=== PATIENT | female | born 1985 | race Caucasian/White ===

== ENCOUNTER 2018-07-04 00:20 | Observation (INO) | payer BC, OTHER ==
[2018-07-04] MEDS ORDERED: LIDOCAINE VISCOUS 2% SOLN 15 ML UDC ONE (01:23)
[2018-07-04] MEDS ORDERED: MAGNE/ALUM HYDROXD 30 ML UCUP ONE (01:23)
[2018-07-04 01:26] LABS: Absolute Lymphocytes (CBC) 2.4 K/uL (0.7-4.9); Absolute Monocytes 0.5 K/uL (0.1-1.3); Absolute Neutrophil 4.6 K/uL (1.8-8.0); Basophils % 1.1 % (0-1.3); Hematocrit 47.6 % (36.0-45.0); Lymphocytes % 30.8 % (15.3-44.8); Monocytes % 6.6 % (3.3-12.3); RBC Red Blood Cell Count 5.29 M/uL (3.86-4.86)
[2018-07-04 01:27] LABS: Protime INR 0.94
[2018-07-04 02:29] LABS: ALT/SGPT 53 U/L (12-78); AST/SGOT 95 U/L (15-37); Albumin 3.8 g/dL (3.4-5.0); Alkaline Phosphatase 80 U/L (45-117); BUN Blood Urea Nitrogen 11 mg/dL (7-18); Bicarbonate 24 mmol/L (21-32); Bilirubin Direct 0.2 mg/dL (0-0.2); Bilirubin Total 0.4 mg/dL (0.2-1.0); Glucose Level 89 mg/dL (74-106); Lipase 4692 U/L (73-393); Magnesium 2.1 mg/dL (1.8-2.4); NT PRO-BNP 24 pg/mL (<125); Potassium 3.7 mmol/L (3.5-5.1); Protein, Total 7.5 g/dL (6.4-8.2); Sodium Level 142 mmol/L (136-145); Troponin (Emerg Dept Use Only) < 0.02 ng/mL (0.0-0.045)
[2018-07-04] MEDS ORDERED: ACETAMINOPHEN 500 MG TAB PO PRN (03:26)
[2018-07-04] MEDS ORDERED: ONDANSETRON 4 MG/2 ML VIAL IV PRN (03:26)
[2018-07-04] MEDS ORDERED: MORPHINE 4 MG/ML SYR IV PRN (03:26)
--- NOTE | 2018-07-04 03:48 | ER ---
Nurse's Notes [facility] Name: Willa Mcclellan Age: 33 yrs Sex: Female : 1985 Arrival Date: 07/04/2018 Time: 00:26 Bed 19 Private MD: Diagnosis: Acute pancreatitis Presentation: 07/04 00:48 Presenting complaint: Patient states: Pt reports at 1900 she started having epigastric ea pain that traveled to her chest and moved straight to her back with n/v/d. Pt reports the pain comes and goes. States she had a few drinks tonight. Transition of care: patient was not received from another setting of care. Onset of symptoms was July 04, 2018. Risk Assessment: Do you want to hurt yourself or someone else? Patient reports no desire to harm self or others. Initial Sepsis Screen: Does the patient meet any 2 criteria? No. Patient's initial sepsis screen is negative. Does the patient have a suspected source of infection? No. Patient's initial sepsis screen is negative. Care prior to arrival: None. 00:48 Method Of Arrival: Wheelchair ea 00:48 Acuity: DAVE 3 ea Triage Assessment: 00:48 General: Appears uncomfortable, Behavior is crying. Pain: Complains of pain in anterior ea aspect of right upper chest, anterior aspect of left upper chest, right breast, left breast and epigastric area Pain radiates to back Pain currently is 9 out of 10 on a pain scale. Quality of pain is described as shooting, Pain began 1900 Is intermittent, Noted to be crying, grimacing. EENT: No signs and/or symptoms were reported regarding the EENT system. Neuro: Level of Consciousness is awake, alert, obeys commands, Oriented to person, place, time, situation. Cardiovascular: Patient's skin is warm and dry. Respiratory: Reports shortness of breath with pain Onset: The symptoms/episode began/occurred today, the patient reports symptoms have resolved. GI: Bowel sounds present X 4 quads. Abd is soft and non tender X 4 quads. GI: Reports diarrhea, nausea, vomiting. Derm: Skin is pink, warm \T\ dry. 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 - Social history:: Smoking status: Patient/guardian denies using tobacco. - Ebola Screening: : No symptoms or risks identified at this time. Screenin:53 Abuse screen: Denies threats or abuse. Nutritional screening: No deficits noted. ea Tuberculosis screening: No symptoms or risk factors identified. Fall Risk None identified. Assessment: 01:25 Reassessment: See triage assessment. Cardiovascular: Rhythm is sinus rhythm. ea Respiratory: Airway is patent Respiratory effort is even, unlabored, Respiratory pattern is regular, symmetrical, Breath sounds are clear bilaterally. 02:32 Reassessment: Patient and/or family updated on plan of care and expected duration. Pain ea level reassessed. Patient is alert, oriented x 3, equal unlabored respirations, skin warm/dry/pink. 02:47 Reassessment: Patient and/or family updated on plan of care and expected duration. Pain ea level reassessed. Patient is alert, oriented x 3, equal unlabored respirations, skin warm/dry/pink. Pt taken to CT. 03:14 Reassessment: Patient and/or family updated on plan of care and expected duration. Pain ea level reassessed. Patient is alert, oriented x 3, equal unlabored respirations, skin warm/dry/pink. Pt returned from CT. 04:51 Reassessment: Patient and/or family updated on plan of care and expected duration. Pain ea level reassessed. Patient is alert, oriented x 3, equal unlabored respirations, skin warm/dry/pink. Report called to Christina VAZQUEZ on second floor. Pt admitted to second floor via wheelchair per tech. Pt tolerating well. Vital Signs: 00:48 BP 119 / 82; Pulse 73; Resp 14; Temp 97.6; Pulse Ox 99% on R/A; Weight 83.91 kg; Height ea 5 ft. 2 in. (157.48 cm); Pain 9/10; 01:00 BP 120 / 79; Pulse 78; Resp 18; Pulse Ox 100% on R/A; ea 02:30 BP 100 / 66; Pulse 79; Resp 18; Pulse Ox 98% on R/A; ea 03:11 BP 138 / 107; Pulse 94; Resp 20; Pulse Ox 99% ; ea 04:36 BP 105 / 69; Pulse 65; Resp 19; Pulse Ox 99% on R/A; ea 00:48 Body Mass Index 33.84 (83.91 kg, 157.48 cm) ea ED Course: 00:26 Patient arrived in ED. ds1 00:43 Hugo Sen PA is PHCP. jr8 00:44 Joseph Ling MD is Attending Physician. jr8 00:48 Beverly Hill RN is Primary Nurse. ea 00:51 Triage completed. ea 00:52 Arm band placed on right wrist. Patient placed in an exam room, on a stretcher, on ea personnel monitor, on pulse oximetry. 00:52 Patient has correct armband on for positive identification. Placed in gown. Bed in low ea position. Call light in reach. 01:00 Inserted saline lock: 22 gauge in right antecubital area, using aseptic technique. ea Blood collected. 01:19 X-ray completed. Portable x-ray completed in exam room. Patient tolerated procedure sg4 well. 02:[address] via wheelchair. kw1 03:06 CT completed. Patient tolerated procedure well. Patient moved back from CT. kw1 03:46 Andre Rocha MD is Hospitalizing Provider. ps1 03:46 Hospitalizing Provider role handed off by Andre Rocha MD ps1 03:46 Joseph Ling MD is Hospitalizing Provider. ps1 03:46 Hospitalizing Provider role handed off by Joseph Ling MD ps1 03:46 Andre Rocha MD is Hospitalizing Provider. ps1 04:10 No provider procedures requiring assistance completed. Patient admitted, IV remains in ea place. Administered Medications: 01:19 Drug: GI Cocktail without - (Maalox Suspension 30 ml, Lidocaine Liquid 2 % 15 ea ml) Route: PO; 02:00 Follow up: Response: No adverse reaction ea Outcome: 03:47 Decision to Hospitalize by Provider. ps1 04:11 Instructed on the need for admit. ea 04:41 Admitted to Med/surg accompanied by tech, room 205, with chart, Report called to Christina denney RN 04:41 Condition: stable 04:55 Patient left the ED. jd3 Signatures: Becca Chirinos ds1 Hugo Sen PA PA jr8 Beverly Hill, RN RN олег Cm, GEORGE Ko RN jd3 Joseph Ling MD MD ps1 Wilhelm, Kimberly kw1 Garcia, Susana 4
--- NOTE | 2018-07-04 03:48 | EDPHYS ---
Physician Documentation [facility] Name: Willa Mcclellan Age: 33 yrs Sex: Female : 1985 Arrival Date: 07/04/2018 Time: 00:26 Bed 19 Private MD: ED Physician Joseph Ling HPI: 07/04 02:37 This 33 yrs old Female presents to ER via Wheelchair with complaints of Upper jr8 abd pain, Shortness Of Breath. 02:37 Onset: The symptoms/episode began/occurred acutely, today. Associated signs and jr8 symptoms: The patient has no apparent associated signs or symptoms. Modifying factors: The patient symptoms are alleviated by nothing, the patient symptoms are aggravated by nothing. The patient has not experienced similar symptoms in the past. The patient has not recently seen a physician. Patient stated that she had epigastric pain that radiates to chest. Feels tightness around back and chest. Denies n/v/d, or fevers . 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 - Social history:: Smoking status: Patient/guardian denies using tobacco. - Ebola Screening: : No symptoms or risks identified at this time. ROS: 02:37 Eyes: Negative for injury, pain, redness, and discharge, ENT: Negative for injury, jr8 pain, and discharge, Neck: Negative for injury, pain, and swelling, Respiratory: Negative for shortness of breath, cough, wheezing, and pleuritic chest pain, Back: Negative for injury and pain, MS/Extremity: Negative for injury and deformity, Skin: Negative for injury, rash, and discoloration, Neuro: Negative for headache, weakness, numbness, tingling, and seizure. 02:37 Cardiovascular: Positive for chest pain, Negative for edema, orthopnea, palpitations, paroxysmal nocturnal dyspnea. 02:37 Abdomen/GI: Positive for abdominal pain, Negative for nausea, vomiting, and diarrhea, abdominal distension, anorexia, dysphagia, hematemesis, black/tarry stool, rectal pain, rectal bleeding, bowel incontinence, flatulence. Exam: 02:37 Eyes: Pupils equal round and reactive to light, extra-ocular motions intact. Lids and jr8 lashes normal. Conjunctiva and sclera are non-icteric and not injected. Cornea within normal limits. Periorbital areas with no swelling, redness, or edema. ENT: Nares patent. No nasal discharge, no septal abnormalities noted. Tympanic membranes are normal and external auditory canals are clear. Oropharynx with no redness, swelling, or masses, exudates, or evidence of obstruction, uvula midline. Mucous membranes moist. Neck: Trachea midline, no thyromegaly or masses palpated, and no cervical lymphadenopathy. Supple, full range of motion without nuchal rigidity, or vertebral point tenderness. No Meningismus. Cardiovascular: Regular rate and rhythm with a normal S1 and S2. No gallops, murmurs, or rubs. Normal PMI, no JVD. No pulse deficits. Respiratory: Lungs have equal breath sounds bilaterally, clear to auscultation and percussion. No rales, rhonchi or wheezes noted. No increased work of breathing, no retractions or nasal flaring. Back: No spinal tenderness. No costovertebral tenderness. Full range of motion. Skin: Warm, dry with normal turgor. Normal color with no rashes, no lesions, and no evidence of cellulitis. MS/ Extremity: Pulses equal, no cyanosis. Neurovascular intact. Full, normal range of motion. Neuro: Awake and alert, GCS 15, oriented to person, place, time, and situation. Cranial nerves II-XII grossly intact. Motor strength 5/5 in all extremities. Sensory grossly intact. Cerebellar exam normal. Normal gait. 02:37 Abdomen/GI: Inspection: abdomen appears normal, Bowel sounds: active, all quadrants, Palpation: soft, in all quadrants, moderate abdominal tenderness, in the epigastric area, mass, is not appreciated, rebound tenderness, is not appreciated, voluntary guarding, is not appreciated, involuntary guarding, is not appreciated, no appreciated organomegaly, Indicators: McBurney's point is not tender, George's sign is negative, Rovsing's sign is negative, Liver: tenderness, is not appreciated. Vital Signs: 00:48 BP 119 / 82; Pulse 73; Resp 14; Temp 97.6; Pulse Ox 99% on R/A; Weight 83.91 kg; Height ea 5 ft. 2 in. (157.48 cm); Pain 9/10; 01:00 BP 120 / 79; Pulse 78; Resp 18; Pulse Ox 100% on R/A; ea 02:30 BP 100 / 66; Pulse 79; Resp 18; Pulse Ox 98% on R/A; ea 03:11 BP 138 / 107; Pulse 94; Resp 20; Pulse Ox 99% ; ea 04:36 BP 105 / 69; Pulse 65; Resp 19; Pulse Ox 99% on R/A; ea 00:48 Body Mass Index 33.84 (83.91 kg, 157.48 cm) ea MDM: 00:46 Patient medically screened. 8 07/05 01:28 Data reviewed: vital signs, nurses notes, lab test result(s), radiologic studies, CT [facility] scan. Data interpreted: Pulse oximetry: on room air is 99 %. Interpretation: normal. Counseling: I had a detailed discussion with the patient and/or guardian regarding: the historical points, exam findings, and any diagnostic results supporting the discharge/admit diagnosis, lab results, radiology results, the need for further work-up and treatment in the hospital. 07/04 01:05 Order name: Basic Metabolic Panel [facility] 07/04 01:05 Order name: CBC with Diff [facility] 07/04 01:05 Order name: LFT's [facility] 07/04 01:05 Order name: Magnesium [facility] 07/04 01:05 Order name: NT PRO-BNP [facility] 07/04 01:05 Order name: PT-INR [facility] 07/04 01:05 Order name: Troponin (emerg Dept Use Only) [facility] 07/04 01:05 Order name: Lipase [facility] 07/04 01:27 Order name: CBC with Automated Diff; Complete Time: 01:31 EDMS 07/04 01:28 Order name: Protime (+INR); Complete Time: 01:31 EDMS 07/04 02:30 Order name: Basic Metabolic Panel; Complete Time: 02:34 EDMS 07/04 02:30 Order name: Liver (Hepatic) Function; Complete Time: 02:34 EDMS 07/04 02:30 Order name: Troponin (Emerg Dept Use Only); Complete Time: 02:34 EDMS 07/04 02:30 Order name: NT PRO-BNP; Complete Time: 02:34 EDMS 07/04 01:05 Order name: XRAY Chest (1 view) 07/04 01:05 Order name: EKG; Complete Time: :07/04 01:05 Order name: Cardiac monitoring; Complete Time: :07/04 01:05 Order name: EKG - Nurse/Tech; Complete Time: :07/04 01:05 Order name: IV Saline Lock; Complete Time: 07/04 01:05 Order name: Labs collected and sent; Complete Time: 07/04 01:05 Order name: O2 Per Protocol; Complete Time: 07/04 01:05 Order name: O2 Sat Monitoring; Complete Time: 07/04 02:30 Order name: Magnesium; Complete Time: 02:34 EDMS 07/04 02:30 Order name: Lipase; Complete Time: 02:34 EDMS 07/04 02:34 Order name: CT Abd/Pelvis - W/Contrast Administered Medications: 07/04 01:19 Drug: GI Cocktail without - (Maalox Suspension 30 ml, Lidocaine Liquid 2 % 15 ea ml) Route: PO; 02:00 Follow up: Response: No adverse reaction ea Disposition: 07:00 Co-signature as Attending Physician, Joseph Ling MD Available for consultation at ps1 all times . Disposition: 07/04/18 03:47 Hospitalization ordered by Andre Rocha for Inpatient Admission. Preliminary diagnosis is Acute pancreatitis. - Bed requested for Telemetry/MedSurg (Inpatient). - Status is Inpatient Admission. lizzy - Condition is Stable. - Problem is new. - Symptoms are unchanged. UTI on Admission? No Signatures: Dispatcher [employer] EDNM Gypsy De Oliveira RN RN mw Roszak, Josh, PA PA jr8 Beverly Hill RN RN ea Davies, Jonathon, RN RN jd3 Singer, Phillip, MD MD ps1 Corrections: (The following items were deleted from the chart) 03:54 03:47 Hospitalization Ordered by Andre Rocha MD for Inpatient Admission. Preliminary mw diagnosis is Acute pancreatitis. Bed requested for Telemetry/MedSurg (Inpatient). Status is Inpatient Admission. Condition is Stable. Problem is new. Symptoms are unchanged. UTI on Admission? No. ps1 04:55 03:54 07/04/2018 03:47 Hospitalization Ordered by Andre Rocha MD for Inpatient jd3 Admission. Preliminary diagnosis is Acute pancreatitis. Bed requested for Telemetry/MedSurg (Inpatient). Status is Inpatient Admission. Condition is Stable. Problem is new. Symptoms are unchanged. UTI on Admission? No. mw
[2018-07-04] MEDS ORDERED: NA CHLORIDE 0.9% 1,000 ML IV SCH (04:00)
--- NOTE | 2018-07-04 06:21 | P.HP ---
Certification for Inpatient Patient admitted to: Inpatient With expected LOS: >2 Midnights Patient will require the following post-hospital care: None Practitioner: I am a practitioner with admitting privileges, knowledge of patient current condition, hospital course, and medical plan of care. Services: Services provided to patient in accordance with Admission requirements found in Title 42 Section 412.3 of the Code of Federal Regulations Patient History Date of Service: 07/04/18 Reason for admission: Acute pancreatitis History of Present Illness: Patient is a 33-year-old female came into the hospital with epigastric tenderness. The pain radiated throughout her abdomen. She also had pain in her upper back. Patient denies any nausea or vomiting. She states she drinks 3 glasses of wine every day. On the weekend is she may drink a little more but this is very unusual. She has had a history of cholecystitis and had a laparoscopic cholecystectomy performed without any complications. She has also had her cholesterol checked and denies any problems with her cholesterol. She had a gastric sleeve performed and she has had no issues after surgery for the gastric sleeve. Her CT scan reveals some gastritis findings. She will be admitted to the hospital for further workup. Allergies No Known Allergies Allergy (Unverified 07/04/18 05:06) Home Medications: Escitalopram Oxalate 1 tab PO DAILY 07/04/18 - Past Medical/Surgical History Has patient received pneumonia vaccine in the past: No Diabetic: No -: Obesity -: Hysterectomy -: gastric sleeve -: Laparoscopic cholecystectomy - Family History Father History Unknown: Yes Grand ma Medical History: Diabetes - Social History Smoking Status: Current every day smoker Alcohol use: Yes CD- Drugs: No Caffeine use: Yes Place of Residence: Home Review of Systems 10-point ROS is otherwise unremarkable Physical Examination - Vital Signs Temperature: 97.6 F Blood Pressure: 105/69 Pulse: 65 Respirations: 19 Pulse Ox (%): 98 - Physical Exam General: Alert, In no apparent distress, Oriented x3 HEENT: Atraumatic, PERRLA, Mucous membr. moist/pink, EOMI, Sclerae nonicteric Neck: Supple, 2+ carotid pulse no bruit, No LAD, Without JVD or thyroid abnormality Respiratory: Clear to auscultation bilaterally, Normal air movement Cardiovascular: Regular rate/rhythm, Normal S1 S2 Gastrointestinal: Normal bowel sounds, Non-distended, No rebound, No guarding, Tenderness Musculoskeletal: No tenderness Integumentary: No rashes Neurological: Normal gait, Normal speech, Normal strength at 5/5 x4 extr, Normal tone, Sensation intact, Cranial nerves 3-12 intact, Normal affect Lymphatics: No axilla or inguinal lymphadenopathy - Studies Laboratory Data (last 24 hrs) 07/04/18 01:00: PT 11.1, INR 0.94 07/04/18 01:00: WBC 7.7, Hgb 16.2 H, Hct 47.6 H, Plt Count 260 07/04/18 01:00: Sodium 142, Potassium 3.7, BUN 11, Creatinine 0.66, Glucose 89, Magnesium 2.1, Total Bilirubin 0.4, AST 95 H, ALT 53, Alkaline Phosphatase 80, Lipase 4692 H Assessment & Plan - Problems (Diagnosis) (1) Acute pancreatitis Current Visit: Yes Status: Acute (2) Alcohol use Current Visit: Yes Status: Acute (3) History of laparoscopic cholecystectomy Current Visit: Yes Status: Acute (4) History of bariatric surgery Current Visit: Yes Status: Acute - Plan 1. Continue with IV hydration 2. IV Protonix for gastritis 3. Continue with pain control 4. NPO 5. GI follow-up as an outpatient 6. We will monitor CBC, BMP, LFTs and lipase along with electrolytes. 7. Discuss with her regarding refraining from alcohol use 8. GI and DVT prophylaxis Discharge Plan: Home Plan to discharge in: Greater than 2 days - Advance Directives Does patient have a Living Will: No Does patient have a Durable POA for Healthcare: No - Code Status/Comfort Care Code Status Assessed: Yes Code Status: Full Code Critical Care: No Time Spent Managing PTS Care (In Minutes): 50
[2018-07-04] MEDS ORDERED: HYDROCODONE/APAP 7.5/325 MG TAB PO PRN (07:19)
[2018-07-04] MEDS ORDERED: TRAMADOL HCL 50 MG TAB PO PRN (07:19)
[2018-07-04 07:56] LABS: ALT/SGPT 59 U/L (12-78); AST/SGOT 68 U/L (15-37); Albumin 3.5 g/dL (3.4-5.0); Alkaline Phosphatase 80 U/L (45-117); BUN Blood Urea Nitrogen 9 mg/dL (7-18); Bicarbonate 29 mmol/L (21-32); Bilirubin Total 0.5 mg/dL (0.2-1.0); Glucose Level 93 mg/dL (74-106); HDL Cholesterol 54 mg/dL (40-60); LDL Cholesterol, Calculated 98 (<130); Lipase 1913 U/L (73-393); Potassium 4.1 mmol/L (3.5-5.1); Protein, Total 6.7 g/dL (6.4-8.2); Sodium Level 142 mmol/L (136-145)
--- NOTE | 2018-07-04 07:57 | RAD REPORT ---
EXAM DESCRIPTION: CT - Abdomen Pelvis W Contrast - 07/04/2018 5:17 am CLINICAL HISTORY: Abdominal pain, chest pain, epigastric pain A preliminary report was provided at the time of the study and reviewed prior to final report. Prior hysterectomy, cholecystectomy and gastric sleeve surgery COMPARISON: None. TECHNIQUE: Biphasic, helical CT imaging of the abdomen and pelvis was performed following 100 ml non -ionic IV contrast. Oral contrast was given. All CT scans are performed using dose optimization technique as appropriate and may include automated exposure control or mA/KV adjustment according to patient size. FINDINGS: No focal infiltrate, pleural effusion or pneumothorax. The patient has several subpleural pulmonary nodules 3 mm or less in size. The chest is not fully evaluated. On a low risk patient, ther e is no recommended follow-up (Fleischner criteria 2017). The liver, spleen, and pancreas show no suspicious findings. Gallbladder is absent. No biliary tree d ilatation. Symmetric renal function is seen with no hydronephrosis or suspicious renal mass. No pyelonephritis o r acute parenchymal process. No bladder abnormalities. No adrenal abnormalities. Gastric surgical changes are present. This distorts the gastric anderson of the fundus and body. No clyde s mass or abnormal thickening seen. Anderson of the gastric antrum are prominent. Gastritis/antritis wou ld be suspected given the patient's epigastric pain pattern. No specific mass or ulcer identified. A few fluid-filled mildly prominent small bowel loops are present probably still normal range. Nonspeci fic enteritis is possible. There is no appendicitis. No acute colon process. Uterus and ovaries show no suspicious findings. No free air, free fluid or inflammatory stranding. No hernia, mass or bulky lymphadenopathy. No suspicious bony findings. No vascular abnormality seen. IMPRESSION: Suspected antritis/ gastritis pattern. No mass or perforation. No surgically emergent fi nding. A few small bowel loops are mildly prominent probably still normal range. These could be part of a no nspecific gastroenteritis. Small 3 mm or less sized subpleural pulmonary nodules in the lung bases. Lung funes are not fully as sessed. For a low risk patient with pulmonary nodules this size, there is no further follow-up recom mended.
[2018-07-04] MEDS ORDERED: INFLUENZA VACCINE (for 3y+) 0.5 ML DOSE IMVAC ONE (08:00)
[2018-07-04 08:02] LABS: Absolute Lymphocytes (CBC) 2.1 K/uL (0.7-4.9); Absolute Monocytes 0.4 K/uL (0.1-1.3); Absolute Neutrophil 3.9 K/uL (1.8-8.0); Basophils % 1.1 % (0-1.3); Eosinophils % 0.6 % (0-4.4); Hematocrit 44.1 % (36.0-45.0); Lymphocytes % 31.6 % (15.3-44.8); MPV 9.2 fL (7.6-11.3); Monocytes % 6.7 % (3.3-12.3)
--- NOTE | 2018-07-04 08:07 | RAD REPORT ---
EXAM DESCRIPTION: RAD - Chest Single View - 07/04/2018 1:19 am CLINICAL HISTORY: Epigastric pain, chest pain COMPARISON: None. TECHNIQUE: AP portable chest image was obtained 0116 hours . FINDINGS: No peripheral mass or consolidation identified. CT abdomen imaging showed small 3 mm size subpleural pulmonary nodules. Nodularity of this size can be occult on portable imaging. No suspiciou s lung mass pattern. No mediastinal or hilar lymphadenopathy or mass suspected. Heart and vasculature are normal. No measurable pleural effusion and no pneumothorax. No acute bony abnormality seen. No acute aortic findings suspected. IMPRESSION: No acute cardiopulmonary process.
[2018-07-04] MEDS ORDERED: ESCITALOPRAM 20 MG TAB PO SCH (09:00)
[2018-07-04] MEDS ORDERED: FAMOTIDINE 20 MG TAB PO SCH (09:00)
--- NOTE | 2018-07-04 10:39 | P.PN ---
Subjective Date of Service: 07/04/18 Primary Care Provider: Dr. Barnhart Chief Complaint: Acute pancreatitis Subjective: Improving (No significant nausea, vomiting or abdominal pain this morning.) Physical Examination - Vital Signs Temperature: 97.4 F Blood Pressure: 117/63 Pulse: 64 Respirations: 16 Pulse Ox (%): 98 - Physical Exam General: Alert, In no apparent distress, Oriented x3, Cooperative HEENT: Atraumatic Neck: Supple Respiratory: Clear to auscultation bilaterally, Normal air movement Cardiovascular: Normal pulses, Regular rate/rhythm Gastrointestinal: Normal bowel sounds, Soft and benign, Non-distended, No tenderness, No masses, No rebound, No guarding Musculoskeletal: No erythema, No tenderness, No warmth Integumentary: No tenderness/swelling, No erythema, No warmth, No cyanosis Neurological: Normal speech, Normal strength at 5/5 x4 extr, Normal tone, Normal affect - Studies Laboratory Data (last 24 hrs) 07/04/18 01:00: PT 11.1, INR 0.94 07/04/18 01:00: WBC 7.7, Hgb 16.2 H, Hct 47.6 H, Plt Count 260 07/04/18 01:00: Sodium 142, Potassium 3.7, BUN 11, Creatinine 0.66, Glucose 89, Magnesium 2.1, Total Bilirubin 0.4, AST 95 H, ALT 53, Alkaline Phosphatase 80, Lipase 4692 H Medications List Reviewed: Yes Assessment & Plan Discharge Plan: Home Plan to discharge in: 24 Hours Physician Review Additional Text: Impression: Abdominal pain secondary to acute alcoholic pancreatitis complicated with likely viral gastroenteritis GERD with history of gastric sleeve surgery Alcohol use CT scan showing small subpleural pulmonary nodules Obesity, BMI 34.6 Plan: Abdominal pain secondary to acute alcoholic pancreatitis complicated with likely viral gastroenteritis: Patient appears improved. No nausea vomiting or abdominal pain this morning. Will advance diet to clear liquid. Encourage ambulation. Will adjust IV fluids. If doing well by this afternoon will provide full liquid diet and then soft diet for tomorrow. Anticipate discharge in the next 24 hr. GERD with history of gastric sleeve surgery: Will provide Pepcid 20 mg 1 pill twice daily. Alcohol use: Alcohol cessation addressed in detail. CT scan showing small subpleural pulmonary nodules: Pulmonary nodules are very small. This is likely low risk for abnormality. Recommend to follow up with pulmonology as an outpatient to further monitor and address. Obesity, BMI 34.6: Lifestyle modification education provided. Time Spent Managing Pts Care (In Minutes): 55
[2018-07-04] MEDS ORDERED: NACHLORIDE 0.45% 1,000 ML IV SCH (11:00)
--- NOTE | 2018-07-04 11:23 | EKG ---
Test Date: 2018-07-04 Test Time: 00:54:00 Operator Technician: CATARINO MEASUREMENT RESULTS: Intervals: Rate: 80 [place]: 140 QRSD: 88 QT: 372 QTc: 429 [place]: P: 23 [place]: 140 QRS: 46 T: -9 INTERPRETIVE STATEMENTS: Normal sinus rhythm Normal ECG No previous ECG available for comparison Electronically Signed On 07-04-18 11:22:36 [employer] SUPERVISOR by Mesfin Carney
[2018-07-04 16:54] LABS: Urine Appearance CLEAR; Urine Bilirubin NEGATIVE (NEG); Urine Blood NEGATIVE (NEG); Urine Color YELLOW; Urine Glucose NEGATIVE (NEG); Urine Microscopic Reflex NO UMIC; Urine Protein NEGATIVE (NEG); Urine Specific Gravity 1.015 (1.005-1.030); Urine Urobilinogen 0.2 mg/dL (0.2-1.0)
[2018-07-04] MEDS ORDERED: ENOXAPARIN 40 MG/0.4 ML SQ SCH (17:00)
--- NOTE | 2018-07-04 18:26 | P.DS ---
Admission Date: 07/04/18 Discharge Date: 07/04/18 Primary Care Provider: Dr. Barnhart Disposition: ROUTINE DISCHARGE Discharge Condition: GOOD Reason for Admission: Acute pancreatitis Consultations: None Procedures: CT Scan: COMPARISON: None. TECHNIQUE: Biphasic, helical CT imaging of the abdomen and pelvis was performed following 100 ml non-ionic IV contrast. Oral contrast was given. All CT scans are performed using dose optimization technique as appropriate and may include automated exposure control or mA/KV adjustment according to patient size. FINDINGS: No focal infiltrate, pleural effusion or pneumothorax. The patient has several subpleural pulmonary nodules 3 mm or less in size. The chest is not fully evaluated. On a low risk patient, there is no recommended follow-up ( Fleischner criteria 2017). The liver, spleen, and pancreas show no suspicious findings. Gallbladder is absent. No biliary tree dilatation. Symmetric renal function is seen with no hydronephrosis or suspicious renal mass. No pyelonephritis or acute parenchymal process. No bladder abnormalities. No adrenal abnormalities. Gastric surgical changes are present. This distorts the gastric anderson of the fundus and body. No gross mass or abnormal thickening seen. Anderson of the gastric antrum are prominent. Gastritis/antritis would be suspected given the patient's epigastric pain pattern. No specific mass or ulcer identified. A few fluid-filled mildly prominent small bowel loops are present probably still normal range. Nonspecific enteritis is possible. There is no appendicitis. No acute colon process. Uterus and ovaries show no suspicious findings. No free air, free fluid or inflammatory stranding. No hernia, mass or bulky lymphadenopathy. No suspicious bony findings. No vascular abnormality seen. IMPRESSION: Suspected antritis/ gastritis pattern. No mass or perforation. No surgically emergent finding. A few small bowel loops are mildly prominent probably still normal range. These could be part of a nonspecific gastroenteritis. Small 3 mm or less sized subpleural pulmonary nodules in the lung bases. Lung funes are not fully assessed. For a low risk patient with pulmonary nodules this size, there is no further follow-up recommended. Medical Problem List: Abdominal pain secondary to acute alcoholic pancreatitis complicated with likely viral gastroenteritis GERD with history of gastric sleeve surgery Alcohol use CT scan showing small subpleural pulmonary nodules Obesity, BMI 34.6 Depression Brief History of Present Illness: 33-year-old female presented to emergency room with nausea, vomiting and abdominal pain. Patient found to have acute pancreatitis with gastroenteritis. Patient admitted for treatment. Hospital Course: Patient presented with abdominal pain secondary to acute alcoholic pancreatitis complicated with likely viral gastroenteritis. Lipase levels were elevated. This improved. CT scan shows possible gastritis versus gastroenteritis pattern. No significant pancreatitis noted on CT scan. Patient given IV fluids with significant improvement. Symptoms resolved. Patient able tolerate a soft diet at discharge. At discharge recommendation is to limit alcohol use. At discharge Zofran 4 mg 1 pill 3 times a day as needed for nausea will be provided. Recommendation is to for the patient to follow up with her PCP within 1 week. Recommend to recheck CMP and lipase level at that time. Patient with history of gastric sleeve surgery. CT scan shows possible underlying gastritis/GERD. At discharge patient may continue with Pepcid 20 mg 1 pill twice daily. Lifestyle modification education will be provided. CT scan revealed small subpleural pulmonary nodules. These were very small. Patient low risk for abnormality. Patient may follow up with pulmonology as an outpatient to further monitor. Patient with history of depression. Patient may continue with her medication at discharge. Vital Signs/Physical Exam: Temp Pulse Resp BP Pulse Ox 96.9 F 59 16 110/66 98 07/04/18 16:00 07/04/18 16:00 07/04/18 16:00 07/04/18 16:00 07/04/18 16:00 General: Alert, In no apparent distress, Oriented x3, Cooperative HEENT: Atraumatic Neck: Supple Respiratory: Clear to auscultation bilaterally, Normal air movement Cardiovascular: Normal pulses, Regular rate/rhythm Gastrointestinal: Normal bowel sounds, Soft and benign, Non-distended Laboratory Data at Discharge: WBC 6.5 K/uL (4.3-10.9) D 07/04/18 07:14 Hgb 14.9 g/dL (12.0-15.0) 07/04/18 07:14 Hct 44.1 % (36.0-45.0) 07/04/18 07:14 Plt Count 265 K/uL (152-406) 07/04/18 07:14 PT 11.1 SECONDS (9.5-12.5) 07/04/18 01:00 INR 0.94 07/04/18 01:00 Sodium 142 mmol/L (136-145) 07/04/18 07:14 Potassium 4.1 mmol/L (3.5-5.1) 07/04/18 07:14 BUN 9 mg/dL (7-18) 07/04/18 07:14 Creatinine 0.61 mg/dL (0.55-1.3) 07/04/18 07:14 Glucose 93 mg/dL (74-106) 07/04/18 07:14 Magnesium 2.1 mg/dL (1.8-2.4) 07/04/18 01:00 Total Bilirubin 0.5 mg/dL (0.2-1.0) 07/04/18 07:14 AST 68 U/L (15-37) H 07/04/18 07:14 ALT 59 U/L (12-78) 07/04/18 07:14 Alkaline Phosphatase 80 U/L (45-117) 07/04/18 07:14 Triglycerides 50 mg/dL (<150) 07/04/18 07:14 Cholesterol 162 mg/dL (<200) 07/04/18 07:14 HDL Cholesterol 54 mg/dL (40-60) 07/04/18 07:14 Cholesterol/HDL Ratio 3.00 07/04/18 07:14 Lipase 1913 U/L (73-393) H 07/04/18 07:14 Home Medications: Ondansetron HCl [Zofran] 4 mg PO TID PRN #15 tablet 07/04/18 RX: Escitalopram Oxalate 1 tab PO DAILY 07/04/18 RX: Famotidine [Pepcid*] 20 mg PO BID #60 tab 07/04/18 New Medications: Ondansetron HCl [Zofran] 4 mg PO TID PRN #15 tablet PRN Reason: Nausea / Vomiting RX: Famotidine [Pepcid*] 20 mg PO BID #60 tab Patient Discharge Instructions: 1. Patient will follow up with her PCP within 1 week to follow up this hospitalization. 2. Patient presented with abdominal pain secondary to acute alcoholic pancreatitis complicated with likely viral gastroenteritis. Lipase levels were elevated. This improved. CT scan shows possible gastritis versus gastroenteritis pattern. No significant pancreatitis noted on CT scan. Patient given IV fluids with significant improvement. Symptoms resolved. Patient able tolerate a soft diet at discharge. At discharge recommendation is to limit alcohol use. At discharge Zofran 4 mg 1 pill 3 times a day as needed for nausea will be provided. Recommendation is to for the patient to follow up with her PCP within 1 week. Recommend to recheck CMP and lipase level at that time. 3. Patient with history of gastric sleeve surgery. CT scan shows possible underlying gastritis/GERD. At discharge patient may continue with Pepcid 20 mg 1 pill twice daily. Lifestyle modification education will be provided. 4. CT scan revealed small subpleural pulmonary nodules. These were very small. Patient low risk for abnormality. Patient may follow up with pulmonology as an outpatient to further monitor. 5. Patient with history of depression. Patient may continue with her medication at discharge. Diet: GI soft , advance as tolerated Activity: Ad jennie Time spent managing pt's care (in minutes): 55
== END 2018-07-04 19:05 | disposition home or self-care (01) ==
LOC: ER 00:20 → ERHOLD 03:46 → INTOOBSV 03:46 → 2ND 04:45
PROVIDERS: ADMIT Hospitalist; ATTEND Hospitalist
DX: K85.20 Alcohol induced acute pancreatitis without necrosis or infection (principal); F17.210 Nicotine dependence, cigarettes, uncomplicated; Z90.49 Acquired absence of other specified parts of digestive tract; R91.8 Other nonspecific abnormal finding of lung field; Z98.84 Bariatric surgery status; F32.9 Major depressive disorder, single episode, unspecified
CPT/HCPCS: 36415; 71045; 74177; 80048; 80053; 80061; 80076; 80320; 81003; 83690; 83735; 83880; 84484; 85025; 85610; 93005; G0378; J7030; Q9967